=== PATIENT | female | born 1980 | race Hispanic/Latino ===

== ENCOUNTER 2018-06-03 10:49 | Emergency (ER) | payer SELFPAY ==
[2018-06-03] MEDS ORDERED: PREDNISONE 20 MG TABLET ONE (11:15)
[2018-06-03] MEDS ORDERED: ACETAMINOPHEN 325 MG TAB ONE (11:16)
[2018-06-03] MEDS ORDERED: IPRATROPIUM/ALBUTEROL SULFATE 3 ML SOLUTION IH ONE (11:18)
[2018-06-03 11:37] LABS: RAPID GROUP A STREP NEGATIVE (NEGATIVE)
[2018-06-03 11:55] LABS: HCG,QUAL RESULT NEGATIVE (NEGATIVE)
[2018-06-03 11:56] LABS: APPEARANCE,URINE Cloudy (CLEAR); BILIRUBIN,URINE Negative (NEGATIVE); COLOR,URINE Yellow (YELLOW); GLUCOSE, URINE (UA) Negative (NEGATIVE); KETONES,URINE 15 mg/dL (NEGATIVE); LEUKOCYTE ESTERASE ,URINE Moderate (NEGATIVE); NITRATE,URINE Positive (NEGATIVE); OCCULT BLOOD,URINE Trace (NEGATIVE); PH,URINE 5.5 (5.0-8.0); PROTEIN,URINE Trace (NEGATIVE)
[2018-06-03 12:58] LABS: BACTERIA,URINE Many /HPF (None Seen); MUCUS,URINE Few LPF (None Seen); RBC,URINE 0-1 /HPF (0-1); SQUAMOUS EPITHELIAL CELL,UR Rare /HPF (0-2)
== END 2018-06-03 13:01 | disposition home or self-care (01) ==
LOC: EDH 10:49
DX: J45.901 Unspecified asthma with (acute) exacerbation (principal); J20.9 Acute bronchitis, unspecified; Z98.890 Other specified postprocedural states
CPT/HCPCS: 71046; 81001; 81025; 87804; 87880; 94640

== ENCOUNTER 2020-03-15 10:49 | Inpatient (IN) | payer MEDICAID ==
[~2020-03-15] VITALS: Ht 160 cm; Wt 74.8 kg
[2020-03-15] MEDS ORDERED: ONDANSETRON HCL 4 MG/2 ML VIAL ONE (11:28)
[2020-03-15] MEDS ORDERED: KETOROLAC TROMETHAMINE 30MG/ML ONE (11:28)
[2020-03-15 11:51] LABS: BASOPHILS % (AUTO) 0.1 % (0.0-5.0); EOSINOPHILS % (AUTO) 0.2 % (0.0-8.0); HEMATOCRIT 30.8 % (36-48); LYMPHOCYTES % (AUTO) 7.9 % (21.0-51.0); MEAN CORPUSCULAR HEMOGLOBIN 20.6 pg (27.0-33.0); MEAN CORPUSCULAR HGB CONC 30.8 g/dL (32.0-36.0); MEAN CORPUSCULAR VOLUME 66.8 fL (79-99); MONOCYTES % (AUTO) 12.2 % (3.0-13.0); NEUTROPHILS % (AUTO) 78.5 % (40.0-77.0); PLATELET COUNT (AUTO) 166 K/uL (130-400); RED BLOOD CELL COUNT(AUTO) 4.61 MIL/uL (4.00-5.50); RED CELL DISTRIBUTION WIDTH 16.7 % (11.0-15.5); WHITE BLOOD COUNT (AUTO) 20.4 K/uL (4.8-10.8)
[2020-03-15 12:12] LABS: ALBUMIN 2.7 g/dL (3.5-5.0); BILIRUBIN,DIRECT 0.4 mg/dL (0.0-0.3); BILIRUBIN,TOTAL 1.3 mg/dL (0.2-1.0); CREATININE 0.9 mg/dL (0.5-1.5); TOTAL PROTEIN, SERUM 8.5 g/dL (6.0-8.3)
[2020-03-15 12:26] LABS: POTASSIUM 2.8 mmol/L (3.5-5.1)
[2020-03-15] MEDS ORDERED: MAGNESIUM OXIDE 400 MG TABLET PO ONE (12:55)
[2020-03-15] MEDS ORDERED: POTASSIUM BICARB/CIT AC 25 MEQ TABLET.EFF ONE (12:56)
[2020-03-15 13:09] LABS: APPEARANCE,URINE Clear (CLEAR); BILIRUBIN,URINE Negative (NEGATIVE); COLOR,URINE Yellow (YELLOW); GLUCOSE, URINE (UA) Negative (NEGATIVE); KETONES,URINE Negative (NEGATIVE); LEUKOCYTE ESTERASE ,URINE Large (NEGATIVE); NITRATE,URINE Negative (NEGATIVE); OCCULT BLOOD,URINE Trace (NEGATIVE); PH,URINE 6.5 (5.0-8.0); PROTEIN,URINE Trace mg/dL (NEGATIVE)
[2020-03-15 13:11] LABS: HCG,QUAL RESULT NEGATIVE (NEGATIVE)
[2020-03-15 13:18] LABS: AMPHET/METH SCREEN,URINE NEGATIVE (NEGATIVE); BARBITURATE SCREEN, URINE NEGATIVE (NEGATIVE); BENZODIAZEPINES SCREEN,URINE NEGATIVE (NEGATIVE); CANNABINOID SCREEN,URINE NEGATIVE (NEGATIVE); COCAINE SCREEN,URINE NEGATIVE (NEGATIVE); OPIATE SCREEN,URINE NEGATIVE (NEGATIVE); PHENCYCLIDINE SCREEN,URINE NEGATIVE (NEGATIVE)
[2020-03-15 13:20] LABS: RBC,URINE 0-1 /HPF (0-1)
[2020-03-15 13:21] LABS: BACTERIA,URINE Few /HPF (None Seen); MUCUS,URINE Few LPF (None Seen); TRANSITIONAL EPI CELLS,URINE Moderate /HPF (None Seen); TRICHOMONAS,URINE Moderate /LPF (None Seen)
[2020-03-15] MEDS ORDERED: ACETAMINOPHEN EXTRA STRENGTH 500 MG TABLET ONE (13:43)
[2020-03-15] MEDS ORDERED: ZOSYN 3.375GM+NS 50ML 50 ML IV ONE (14:03)
[2020-03-15] MEDS ORDERED: HYDRALAZINE HCL 20 MG/ML VIAL IV PRN (15:45)
[2020-03-15] MEDS ORDERED: ACETAMINOPHEN 325 MG TAB PO PRN ×2 (15:45)
[2020-03-15] MEDS ORDERED: POTASSIUM CHLORIDE 10MEQ/100ML 100 ML IV PRN (15:45)
[2020-03-15] MEDS ORDERED: ONDANSETRON HCL 4 MG/2 ML VIAL IV PRN (15:45)
[2020-03-15] MEDS ORDERED: POTASSIUM CHLORIDE 20 MEQ ERTAB PO PRN (15:45)
[2020-03-15] MEDS: SODIUM CHLORIDE 0.9% 1000ML 1,000 ML IV SCH (15:45)
[2020-03-15] MEDS ORDERED: LIDOCAINE HCL-MPF 1% 2ML VIAL IV PRN (15:45)
[2020-03-15] MEDS ORDERED: METRONIDAZOLE 500MG/100ML BAG 100 ML ONE (16:52)
[2020-03-15] MEDS ORDERED: FAMOTIDINE/PF 20 MG/2 ML VIAL IV ONE (20:28)
[2020-03-15] MEDS ORDERED: ZOSYN 3.375GM+NS 50ML 50 ML IV SCH (23:30)
[2020-03-15] MEDS ORDERED: PHARMACY COMMUNICATION MISC SCH (23:45)
[2020-03-16] VITALS (19 sets, daily range): BP systolic 93–121; BP diastolic 52–88
[2020-03-16] MEDS ORDERED: ZOSYN 3.375GM+NS 50ML 50 ML IV ONE ×2 (00:03→08:43)
[2020-03-16] MEDS ORDERED: METRONIDAZOLE 500MG/100ML BAG 100 ML ONE (01:21)
[2020-03-16] MEDS: SODIUM CHLORIDE 0.9% 1000ML 1,000 ML IV SCH ×3 (01:45→21:45)
[2020-03-16] MEDS ORDERED: MORPHINE SULFATE 2 MG/ML 1ML SYG ONE ×2 (01:46→08:44)
[2020-03-16 03:54] LABS: HEMATOCRIT 24.6 % (36-48); MEAN CORPUSCULAR HEMOGLOBIN 21.2 pg (27.0-33.0); MEAN CORPUSCULAR HGB CONC 31.3 g/dL (32.0-36.0); MEAN CORPUSCULAR VOLUME 67.6 fL (79-99); PLATELET COUNT (AUTO) 140 K/uL (130-400); RED BLOOD CELL COUNT(AUTO) 3.64 MIL/uL (4.00-5.50); RED CELL DISTRIBUTION WIDTH 16.4 % (11.0-15.5); WHITE BLOOD COUNT (AUTO) 14.5 K/uL (4.8-10.8)
[2020-03-16 04:08] LABS: CREATININE 0.7 mg/dL (0.5-1.5); POTASSIUM 3.2 mmol/L (3.5-5.1)
[2020-03-16] MEDS ORDERED: ONDANSETRON HCL 4 MG/2 ML VIAL ONE ×2 (08:43→15:14)
[2020-03-16] MEDS ORDERED: FAMOTIDINE/PF 20 MG/2 ML VIAL IV ONE (08:44)
[2020-03-16] MEDS: FAMOTIDINE/PF 20 MG/2 ML VIAL IV SCH ×3 (09:00→21:00)
[2020-03-16] MEDS ORDERED: CEFAZOLIN SODIUM 1 GM VIAL ONE (14:18)
[2020-03-16] MEDS ORDERED: BUPIVACAINE/PF 0.5% 30ML VIAL ONE (14:42)
[2020-03-16] MEDS ORDERED: LIDOCAINE PF 2% 5ML ABBOJECT ONE (15:12)
[2020-03-16] MEDS ORDERED: SUCCINYLCHOLINE CHLORIDE 20 MG/ML 10 ML VIAL ONE (15:12)
[2020-03-16] MEDS ORDERED: PROPOFOL 10 MG/ML 20ML VIAL IV ONE (15:12)
[2020-03-16] MEDS ORDERED: DEXAMETHASONE SOD PHOSPHATE 10MG/ML 1ML VIAL ONE (15:13)
[2020-03-16] MEDS ORDERED: ROCURONIUM 10MG/1ML SYR 10 MG/ML ML ONE (15:14)
[2020-03-16] MEDS ORDERED: GLYCOPYRROLATE 1 MG/5 ML SYRINGE ONE (15:14)
[2020-03-16] MEDS ORDERED: NEOSTIGMINE 5MG/5ML SYR IV ONE (15:14)
[2020-03-16] MEDS ORDERED: MIDAZOLAM HCL 1 MG/ML 2ML VIAL ONE (15:14)
[2020-03-16] MEDS ORDERED: FENTANYL CITRATE PF 50 MCG/1 ML 2ML VIAL ONE ×2 (15:15→16:02)
--- NOTE | 2020-03-16 17:06 | NUR ---
ATTEMPTED IA. NO ANSWER. CM TO FOLLOW UP IN AM
[2020-03-16] MEDS ORDERED: MEPERIDINE-PF 25 MG/ML SYG ONE ×2 (17:40→17:50)
--- NOTE | 2020-03-16 18:30 | NUR ---
PT / POSTOP / PER SERVICES OF DR LIVE AND DR. DAVIDSON. PT HAD A LAP CHOLECYSTETOMY. ASSESS ABD . PT HAS 5 SM O-SITE DRSG. WITH 2X2 . TO HER UPPER , MID AND LOWER ABD . ACTIVE BOWEL SOUND TENDER TO TOUCH . BUT SOFT. LAST BM PER PT INFORMATION . 03-15-2020 HOB UP . POSTOP V/S STARTED .WITH FALL RISK AND CALL LIGHT IN REACH.. AND BED LEVEL DOWN . Addendum: 03/16/20 at 1934 by SEE YOUNG RN RN NOTED CORRECTION . PT HAS 4 SM 0-SITE DRSG TO HER UPPER MID ABD ,AND RT SIDE OF ABD. DRY AND CLEAN .
--- NOTE | 2020-03-16 18:40 | NUR ---
SET UP IVF OF .9NS AT 100 CC HR . IV SITE RAC , 20 G. NOTED NO REDNESS TO SITE, , NO PAIN VOICED .
[2020-03-16] MEDS: POTASSIUM CHLORIDE 10% ELIXIR 20 MEQ/15 ML UDCUP PO PRN (20:28)
[2020-03-16] MEDS: ZOSYN 3.375GM+NS 50ML 50 ML IV SCH (20:28)
[2020-03-16] MEDS: MORPHINE SULFATE 2 MG/ML 1ML SYG IV PRN (21:28)
[2020-03-17] VITALS: BP 106/69
[2020-03-17] MEDS: METRONIDAZOLE 500MG/100ML BAG 100 ML IV SCH ×4 (01:27→22:02)
[2020-03-17] MEDS: MORPHINE SULFATE 2 MG/ML 1ML SYG IV PRN ×3 (01:33→22:02)
[2020-03-17] MEDS: POTASSIUM CHLORIDE 10% ELIXIR 20 MEQ/15 ML UDCUP PO PRN (01:34)
[2020-03-17 04:00] VITALS: BP 118/73
[2020-03-17 04:16] LABS: BASOPHILS % (AUTO) 0.1 % (0.0-5.0); HEMATOCRIT 26.7 % (36-48); LYMPHOCYTES % (AUTO) 5.5 % (21.0-51.0); MEAN CORPUSCULAR HEMOGLOBIN 20.7 pg (27.0-33.0); MEAN CORPUSCULAR VOLUME 69.2 fL (79-99); MONOCYTES % (AUTO) 4.7 % (3.0-13.0); PLATELET COUNT (AUTO) 167 K/uL (130-400); RED BLOOD CELL COUNT(AUTO) 3.86 MIL/uL (4.00-5.50); RED CELL DISTRIBUTION WIDTH 16.7 % (11.0-15.5); WHITE BLOOD COUNT (AUTO) 16.3 K/uL (4.8-10.8)
[2020-03-17 04:37] LABS: BILIRUBIN,TOTAL 0.5 mg/dL (0.2-1.0); CREATININE 0.7 mg/dL (0.5-1.5); POTASSIUM 3.9 mmol/L (3.5-5.1); TOTAL PROTEIN, SERUM 7.4 g/dL (6.0-8.3)
[2020-03-17] MEDS: ZOSYN 3.375GM+NS 50ML 50 ML IV SCH ×3 (05:43→20:00)
[2020-03-17] MEDS: SODIUM CHLORIDE 0.9% 1000ML 1,000 ML IV SCH ×2 (05:44→17:45)
[2020-03-17] MEDS: FAMOTIDINE/PF 20 MG/2 ML VIAL IV SCH ×2 (07:37→20:00)
--- NOTE | 2020-03-17 08:00 | NUR ---
up ambulating . in the hallway. tolerate well .
[2020-03-17 08:15] VITALS: BP 110/75
--- NOTE | 2020-03-17 08:45 | NUR ---
ATTEMPTED IA. NO ANSWER. CM TO FOLLOW UP
[2020-03-17 11:54] VITALS: BP 115/90
--- NOTE | 2020-03-17 12:56 | NUR ---
DCP IA done by Dion Vasquez RN. As per Dion spoke to pt's daughter Ghislaine De La Vega . Pt is indepenent prior to admission, lives at home with 3 daughters. Denies any equipments/services. Feels safe to go back [place], still drives, daughters able to assist with transporatation and needs as necessary. Uses [facility] for meds. DC plan to home once stable. CM to cont to follow up. Addendum: 03/17/20 at 1308 by LUIS ARMANDO MUNROE LVN CM Amended: Links added.
--- NOTE | 2020-03-17 15:30 | NUR ---
up ambulating . passing gas . tolerate well . sm abd drsg check ,dry and clean .
[2020-03-17 16:48] VITALS: BP 123/80
--- NOTE | 2020-03-17 17:50 | NUR ---
pt will call daughter , regarding her care. pt stated that she does not have any family here , jose de jesus diaz , single mom and she takes care of herself and daughter ,
[2020-03-17 19:00] VITALS: BP 113/82
[2020-03-17] MEDS: MORPHINE SULFATE 4 MG/1ML SYG IV PRN (20:00)
[2020-03-18] VITALS: BP 103/56
[2020-03-18] MEDS: MORPHINE SULFATE 4 MG/1ML SYG IV PRN ×3 (01:10→14:11)
[2020-03-18] MEDS: MORPHINE SULFATE 2 MG/ML 1ML SYG IV PRN (03:23)
[2020-03-18] MEDS: ZOSYN 3.375GM+NS 50ML 50 ML IV SCH ×2 (03:23→12:25)
[2020-03-18] MEDS: SODIUM CHLORIDE 0.9% 1000ML 1,000 ML IV SCH ×2 (03:44→12:25)
[2020-03-18 04:00] VITALS: BP 108/79
[2020-03-18 06:51] LABS: HEMATOCRIT 24.6 % (36-48); MEAN CORPUSCULAR HEMOGLOBIN 20.5 pg (27.0-33.0); MEAN CORPUSCULAR HGB CONC 29.3 g/dL (32.0-36.0); MEAN CORPUSCULAR VOLUME 70.1 fL (79-99); RED BLOOD CELL COUNT(AUTO) 3.51 MIL/uL (4.00-5.50); RED CELL DISTRIBUTION WIDTH 17.2 % (11.0-15.5); WHITE BLOOD COUNT (AUTO) 13.5 K/uL (4.8-10.8)
[2020-03-18 07:07] LABS: ALBUMIN 1.8 g/dL (3.5-5.0); BILIRUBIN,TOTAL 0.3 mg/dL (0.2-1.0); CREATININE 0.7 mg/dL (0.5-1.5); POTASSIUM 3.4 mmol/L (3.5-5.1); TOTAL PROTEIN, SERUM 6.7 g/dL (6.0-8.3)
--- NOTE | 2020-03-18 08:10 | NUR ---
PAIN C/O pain rates 8 right upper quad medicated with morphine 4 mg ivp K-3.4 replaced K 20 MEQ PO
[2020-03-18 08:19] VITALS: BP 93/64
[2020-03-18] MEDS: FAMOTIDINE/PF 20 MG/2 ML VIAL IV SCH (08:19)
[2020-03-18] MEDS: METRONIDAZOLE 500MG/100ML BAG 100 ML IV SCH (08:19)
[2020-03-18 09:04] LABS: RETICULOCYTE % (AUTO) 1.44 % (0.42-2.23)
[2020-03-18 11:48] VITALS: BP 134/81
[2020-03-18] MEDS ORDERED: IRON SUCROSE COMPLEX 500 MG in SODIUM CHLORIDE 0.9% 250 ML IV SCH (11:59)
[2020-03-18] MEDS ORDERED: EPOETIN ALFA 10,000 UNIT/ML VIAL SQ SCH (12:00)
[2020-03-18 16:43] VITALS: BP 112/68
== END 2020-03-18 18:45 | disposition home or self-care (01) | DRG 710 ==
LOC: EDH 10:49 → INTOOBSV 10:50 → EDHIP 10:50 → OBSVTOIN 10:50 → 3AH 03-16 17:27
PROVIDERS: ADMIT Family Medicine; ATTEND Family Medicine
PROC: 0FT44ZZ Resection of Gallbladder, Percutaneous Endoscopic Approach (ICD-10-PCS; principal; 2020-03-16 15:25)
DX: A41.51 Sepsis due to Escherichia coli [E. coli] (principal); K44.9 Diaphragmatic hernia without obstruction or gangrene; E87.6 Hypokalemia; K82.8 Other specified diseases of gallbladder; K82.A1 Gangrene of gallbladder in cholecystitis; D62 Acute posthemorrhagic anemia; K66.0 Peritoneal adhesions (postprocedural) (postinfection)
CPT/HCPCS: 36415; 74176; 74181; 76705; 80048; 80053; 80076; 80305; 81001; 81025; 82550; 83605; 83690; 84145; 84443; 85025; 85027; 85045; 87040; 87077; 87088; 87186; G0378; J0330; J0690; J0885; J1100; J1756; J1885; J2001; J2175; J2250; J2270; J2405; J2543; J2704; J2710; J3010; J3490; J7030; J7050; J7120

== ENCOUNTER 2022-12-26 06:28 | Emergency (ER) | payer MEDICAID ==
[~2022-12-26] VITALS: Ht 160 cm; Wt 83.9 kg
[2022-12-26 06:29] VITALS: BP 141/93
[2022-12-26 07:11] LABS: APPEARANCE,URINE CLOUDY (CLEAR); BILIRUBIN,URINE NEGATIVE (NEGATIVE); COLOR,URINE LIGHT-YELLOW (YELLOW); GLUCOSE, URINE (UA) NEGATIVE (NEGATIVE); KETONES,URINE NEGATIVE (NEGATIVE); LEUKOCYTE ESTERASE ,URINE 75 Leu/uL (NEGATIVE); NITRATE,URINE NEGATIVE (NEGATIVE); OCCULT BLOOD,URINE NEGATIVE (NEGATIVE); PH,URINE 6.5 (5.0-8.0); PROTEIN,URINE NEGATIVE (NEGATIVE); UROBILINOGEN,URINE 0.2 mg/dL (0.2-1.0)
[2022-12-26 07:16] LABS: CREATININE 0.6 mg/dL (0.5-1.5); POTASSIUM 3.8 mmol/L (3.5-5.1)
[2022-12-26 07:21] LABS: ALBUMIN 3.1 g/dL (3.5-5.0); TOTAL PROTEIN, SERUM 7.9 g/dL (6.0-8.3)
[2022-12-26 07:34] LABS: MUCUS,URINE RARE LPF (None Seen); SQUAMOUS EPITHELIAL CELL,UR FEW /HPF (0-2)
[2022-12-26 08:00] LABS: BASOPHILS % (AUTO) 0.5 % (0.0-5.0); EOSINOPHILS % (AUTO) 30.8 % (0.0-8.0); HEMATOCRIT 30.2 % (36-48); LYMPHOCYTES % (AUTO) 19.9 % (21.0-51.0); MEAN CORPUSCULAR HEMOGLOBIN 23.2 pg (27.0-33.0); MEAN CORPUSCULAR HGB CONC 30.5 g/dL (32.0-36.0); MEAN CORPUSCULAR VOLUME 76.3 fL (79-99); MONOCYTES % (AUTO) 5.7 % (3.0-13.0); NEUTROPHILS % (AUTO) 42.8 % (40.0-77.0); PLATELET COUNT (AUTO) 48 K/uL (130-400); RED BLOOD CELL COUNT(AUTO) 3.96 MIL/uL (4.00-5.50); RED CELL DISTRIBUTION WIDTH 17.2 % (11.0-15.5); WHITE BLOOD COUNT (AUTO) 14.5 K/uL (4.8-10.8)
[2022-12-26 08:49] LABS: BASOPHILS % (MANUAL) 2 % (0-2); EOSINOPHILS % (MANUAL) 30 % (1-6); LYMPHOCYTES % (MANUAL) 23 % (22-44); MAN.DIFF COMMENT-IMPRESSION MANUAL DIFFERENTIAL; MONOCYTES % (MANUAL) 2 % (2-9); PLATELET MORPHOLOGY COMMENT MARKED DECREASE; SEGMENTED NEUTROPHILS % 43 % (40-70)
[2022-12-26] MEDS ORDERED: CEFTRIAXONE 1G VIAL IVPB ONE (11:30)
[2022-12-26] MEDS ORDERED: CEFTRIAXONE 2GM VIAL IVPB ONE (12:30)
== END 2022-12-26 13:03 | disposition left against medical advice (07) ==
LOC: EDH 06:28
DX: N39.0 Urinary tract infection, site not specified (principal); N93.9 Abnormal uterine and vaginal bleeding, unspecified; D69.6 Thrombocytopenia, unspecified; Z90.49 Acquired absence of other specified parts of digestive tract
CPT/HCPCS: 99285; 86870; 96365; 76856; 80053; 84703; 85025; 86850; 86900; 86901; 86156; 87077; 87088; 87186; 83605; 81001; 36415; J0696

== ENCOUNTER 2024-11-27 13:46 | Emergency (ER) | payer BC, MEDICAID ==
[~2024-11-27] VITALS: Ht 160 cm; Wt 79.4 kg
--- NOTE | 2024-11-27 14:15 | ERN ---
ED Note History of Present Illness Stated Complaint: OTHER Chief Complaint: Vaginal Problems/Bleeding Time Seen by MD: 13:47 Dictation: PATIENT IS A 44-YEAR-OLD FEMALE COMING IN TODAY WITH COMPLAINTS OF VAGINAL BLEEDING FOR THE LAST 2-3 WEEKS. SHE IS ALSO HAVING MILD CRAMPING. SHE STATES SHE HAS HAD A BILATERAL TUBAL LIGATION AND CAN NOT HAVE CHILDREN. SHE STATES SHE HAS A HISTORY OF KNOWN UTERINE FIBROIDS AND WAS SEE[facility] , [facility] HOWEVER HE IS NO LONGER THERE. SHE GOES TO [facility] HOWEVER HAS NOT DISCUSSED THE CASE WITH THEM OTHER THAN THEY SAID THEY WOULD TRY TO HELP HER FIND AN OB WHICH THEY HAVE NOT DONE YET. Allergies: Coded Allergies: No Known Drug Allergies (Verified Allergy, Unknown, 03/15/20) Home Meds No Active Prescriptions or Reported Meds Past Medical History Past Medical History: Anemia, Other (UTERINE FIBROIDS) Additional Past Medical Hx: LUPUS Surgical History: Cholecystectomy, Other, Social History: Negative, Lives with family History: Not Applicable LMP: Nov 27, 2024 RN Note Reviewed/Agreed w/PFSH: Yes Review of System Dictation CONSTITUTIONAL: NEGATIVE EXCEPT FOR HPI HEAD/FACE: NEGATIVE EXCEPT FOR HPI EENT: NEGATIVE EXCEPT FOR HPI RESPIRATORY: NEGATIVE EXCEPT FOR HPI GASTROINTESTINAL/ABDOMINAL: NEGATIVE EXCEPT FOR HPI GENITOURINARY: NEGATIVE EXCEPT FOR HPI VAGINAL BLEEDING MUSCULOSKELETAL: NEGATIVE EXCEPT FOR HPI INTEGUMENTARY: NEGATIVE EXCEPT FOR HPI NEUROLOGICAL/PSYCH: NEGATIVE EXCEPT FOR HPI HEMATOLOGIC/LYMPHATIC: NEGATIVE EXCEPT FOR HPI ALL SYSTEMS NEGATIVE, EXCEPT NOTED ABOVE. 13 POINT REVIEW OF SYSTEMS ASSESSED AND ALL NEGATIVE EXCEPT FOR ABOVE. Initial Vital Sign VS Vital Signs Date Time Temp Pulse Resp B/P (MAP) Pulse Ox O2 Delivery O2 Flow Rate FiO2 11/27/24 13:53 98.8 105 18 127/76 99 Physical Exam Dictation VITAL SIGNS REVIEWED GENERAL APPEARANCE: ALERT, ORIENTED X 3, N MILD CASTRO DISTRESS, WELL DEVELOPED, NOURISHED. OBESE HEAD AND FACE: NON-TRAUMATIC. EYES: PERRL, PINK CONJUNCTIVAS, EYELID NO TRAUMA, ANTERIOR CHAMBER WITH ARCUS SENILIS. EARS: PINNAS INTACT AND NO SIGNS OF TRAUMA OR ERYTHEMA EAR CANALS CLEAR AND NO DISCHARGE TM NO ERYTHEMA NOSE: NO DISCHARGE, NO BLEEDING. OROPHARYNX: MOUTH NORMAL, TONGUE PINK, PHARYNX CLEAR,NO ERYTHEMA, TONSILS NO EXUDATES, NO ABSCESSES NOTED, MUCOUS MEMBRANE MOIST NECK: SUPPLE, NON-TENDER, NO THYROMEGALY, NO MASSES, NO JVD, NO BRUITS BREAST:DEFERRED CHEST:NO TENDERNESS, NO CREPITUS, NO PARADOXICAL MOVEMENT, NO RETRACTIONS LUNGS:CLEAR, WELL-VENTILATED, SYMMETRIC, NO RALES, NO WHEEZING, NO RHONCHI, NO STRIDOR, GOOD BREATH SOUNDS BILATERALLY HEART: REGULAR RATE, REGULAR RHYTHM, NO MURMUR, NO GALLOPS VASCULAR: NO PERIPHERAL EDEMA, ABDOMEN: SOFT, POSITIVE BOWEL SOUNDS, NONDISTENDED, NO GUARDING, NONTENDER, NO REBOUND, NO MASSES NO HEPATOMEGALY, NO SPLENOMEGALY, NO OLGUIN'S SIGN, NO HERNIAS. RECTAL: DEFERRED GENITAL: DEFERRED NEUROLOGICAL: NORMAL SPEECH, MOTOR FUNCTION INTACT, SENSORY FUNCTION INTACT MUSCULOSKELETAL: NECK NONTENDER, FULL RANGE OF MOTION, BACK NONTENDER, FULL RANGE OF MOTION, EXTREMITIES: NONTENDER, FULL RANGE OF MOTION SKIN: COLOR PINK, DRY, NO TURGOR, NO RASH, NO LACERATIONS, NO ABRASIONS, NO CONTUSIONS. LYMPHATIC: DEFERRED Results (Laboratory/Radiology) Laboratory/Radiology Laboratory Tests Test 11/27/24 14:15 11/27/24 14:22 Urine Color YELLOW (YELLOW) Urine Appearance CLEAR (CLEAR) Urine pH 5.5 (5.0-8.0) Urine Specific [place] 1.027 (1.001-1.031) Urine Protein 10 mg/dL (NEGATIVE) H Urine Glucose (UA) NEGATIVE mg/dL (NEGATIVE) Urine Ketones NEGATIVE mg/dL (NEGATIVE) Urine Occult Blood LARGE (NEGATIVE) H Urine Nitrate NEGATIVE (NEGATIVE) Urine Bilirubin NEGATIVE mg/dL (NEGATIVE) Urine Urobilinogen 2.0 mg/dL (0.2-1.0) H Urine Leukocyte Esterase NEGATIVE Martha/uL Urine RBC 51-100 /HPF (0-1) H Urine WBC 2-5 /HPF (0-1) H Urine Squamous Epithelial Cells RARE /HPF (0-2) Urine Bacteria None /HPF (None Seen) White Blood Count 10.6 K/uL (4.8-10.8) Red Blood Count 4.55 MIL/uL (4.00-5.50) Hemoglobin 11.6 g/dL (12.0-16.0) L Hematocrit 36.6 % (36-48) Mean Corpuscular Volume 80.4 fL (79-99) Mean Corpuscular Hemoglobin 25.5 pg (27.0-33.0) L Mean Corpuscular Hemoglobin Concent 31.7 g/dL (32.0-36.0) L Red Cell Distribution Width 25.1 % (11.0-15.5) H Platelet Count 58 K/uL (130-400) L Mean Platelet Volume fL (7.5-10.5) Immature Granulocyte % (Auto) 0.3 % (0-1) Neutrophils (%) (Auto) 48.2 % (40.0-77.0) Lymphocytes (%) (Auto) 21.5 % (21.0-51.0) Monocytes (%) (Auto) 6.0 % (3.0-13.0) Eosinophils (%) (Auto) 23.4 % (0.0-8.0) H Basophils (%) (Auto) 0.6 % (0.0-5.0) Neutrophils # (Auto) 5.1 K/uL (1.8-7.7) Lymphocytes # (Auto) 2.3 K/uL (1.0-4.8) Monocytes # (Auto) 0.6 K/uL (0.1-1.0) Eosinophils # (Auto) 2.49 K/uL (0.00-0.70) H Basophils # (Auto) 0.06 K/uL (0.00-0.20) Absolute Immature Granulocyte (auto 0.03 K/uL (0-1) Nucleated Red Blood Cells 0.0 % (0.0-0.19) Sodium Level 140 mmol/L (136-145) Potassium Level 3.7 mmol/L (3.5-5.1) Chloride Level 108 mmol/L (101-111) Carbon Dioxide Level 24 mmol/L (21-32) Blood Urea Nitrogen 7 mg/dL (7-18) Creatinine 0.6 mg/dL (0.5-1.0) Glomerular Filtration Rate Calc 113 mL/min (>90) Random Glucose 112 mg/dL (70-105) H Total Calcium 8.8 mg/dL (8.5-10.1) Labs Reviewed?: Yes ED Course ED Course Orders Procedure Category Date Status Time Cbc With Differential LAB 11/27/24 In Process 14:13 0.9%Nacl 1000ml (Ns PHA 11/27/24 Complete 1000ml) 14:30 Type And Screen BBK 11/27/24 In Process 14:13 Basic Metabolic Panel LAB 11/27/24 Complete 14:13 Ketorolac PHA 11/27/24 Complete Tromethamine 30mg/Ml 14:30 Urinalysis Profile LAB 11/27/24 Complete 14:23 Current Medications Medications (Trade) Dose Ordered Sig/Solitario Route PRN Reason Start Time Stop Time Status Last Admin Dose Admin Ketorolac Tromethamine (toRADol) 30 mg ONCE ONCE IVP 11/27/24 14:30 11/27/24 14:31 DC 11/27/24 14:57 Sodium Chloride 1,000 ml @ 0 mls/hr ONCE ONCE IV 11/27/24 14:30 11/27/24 14:31 DC 11/27/24 14:56 Vital Signs Date Time Temp Pulse Resp B/P (MAP) Pulse Ox O2 Delivery O2 Flow Rate FiO2 11/27/24 13:53 98.8 105 18 127/76 99 1500/PATIENT DISCHARGED HOME WITH DIAGNOSIS OF DYSFUNCTIONAL UTERINE BLEEDING AND MILD ANEMIA. SHE WAS TOLD TO FOLLOW UP WITH HER PRIMARY CARE DOCTOR IN 1-2 DAYS AT [facility] FOR REFERRAL TO [facility]. Medical Decision Making MDM MEDICAL DISCHARGE MAKING BASED ON BASIC LABS. NO ULTRASOUND WAS PERFORMED SINCE PATIENT HAS BILATERAL TUBAL LIGATION AND A HISTORY OF UTERINE FIBROIDS. HEMOGLOBIN HEMATOCRIT ARE STABLE PATIENT DISCHARGED WITH PAIN MANAGEMENT TOLD TO FOLLOW UP WITH HER DOCTOR FOR [facility] RE[facility]ERR[facility]. DX & DISP Disposition: Discharge Departure Impression: Primary Impression: Dysfunctional uterine bleeding Additional Impressions: Mild anemia, Microscopic hematuria Condition: Stable Scripts Ibuprofen (Ibuprofen 800 mg Tab) 800 Mg Tab 800 MG PO Q8H PRN for fever or pain, #30 TAB 0 Refills Prov: DIANNE IQBAL [employer]ER WINDER 11/27/24 Additional Instructions: FOLLOW-UP WITH PRIMARY CARE PROVIDER IN 1 TO 2 DAYS. TAKE MEDICATIONS DIRECTED HERE IN THE EMERGENCY ROOM. OKAY TO CONTINUE HOME MEDICATIONS UNLESS OTHERWISE DISCUSSED DURING YOUR VISIT IN THE EMERGENCY ROOM TODAY. RETURN TO YOUR NEAREST EMERGENCY ROOM IF SYMPTOMS WORSEN OR IF THERE IS NO IMPROVEMENT. CALL 911 IF YOU NEED IMMEDIATE ASSISTANCE. TAKE TYLENOL OR MOTRIN [id number] NEEDED AND IF NO CONTRAINDICATIONS ARE PRESENT. INCREASE ORAL HYDRATION. A WOUND CULTURE OR URINE CULTURE WAS ORDERED HERE IN THE EMERGENCY ROOM DEPARTMENT PLEASE FOLLOW-UP WITH PRIMARY CARE PROVIDER AND ADVISE THEM TO GET REPEAT PORTS FROM OUR FACILITY. IF YOU HAD ANY HERI WRAP/SPLINTS THAT WERE APPLIED HERE, PLEASE DO NOT REMOVE THEM UNTIL YOU SEE YOUR PRIMARY CARE OR SPECIALTY. TAKE IBUPROFEN DIRECTED WITH FOOD FOR PAIN. WARM COMPRESSES TO PELVIS THREE TO 4 TIMES A DAY. FOLLOW UP WITH YOUR PRIMARY CARE DOCTOR AT [facility] FOR REFERRAL TO [facility]. Referrals: SELF,REFERRAL (PCP) Time of Disposition: 15:01 I have reviewed the case, and I agree with, Diagnosis and Plan DIANNE IQBAL [employer] RO[employer] WINDER Nov 27, 2024 14:15
[2024-11-27 14:32] LABS: BASOPHILS # (AUTO) 0.06 K/uL (0.00-0.20); BASOPHILS % (AUTO) 0.6 % (0.0-5.0); EOSINOPHILS # (AUTO) 2.49 K/uL (0.00-0.70); EOSINOPHILS % (AUTO) 23.4 % (0.0-8.0); HEMATOCRIT 36.6 % (36-48); IMMATURE GRANULOCYTE ABSOLUTE 0.03 K/uL (0-1); LYMPHOCYTES # (AUTO) 2.3 K/uL (1.0-4.8); LYMPHOCYTES % (AUTO) 21.5 % (21.0-51.0); MEAN CORPUSCULAR HEMOGLOBIN 25.5 pg (27.0-33.0); MEAN CORPUSCULAR HGB CONC 31.7 g/dL (32.0-36.0); MEAN CORPUSCULAR VOLUME 80.4 fL (79-99); MONOCYTES # (AUTO) 0.6 K/uL (0.1-1.0); NEUTROPHILS # (AUTO) 5.1 K/uL (1.8-7.7); NEUTROPHILS % (AUTO) 48.2 % (40.0-77.0); PLATELET COUNT (AUTO) 58 K/uL (130-400); RED BLOOD CELL COUNT(AUTO) 4.55 MIL/uL (4.00-5.50); RED CELL DISTRIBUTION WIDTH 25.1 % (11.0-15.5); WHITE BLOOD COUNT (AUTO) 10.6 K/uL (4.8-10.8)
[2024-11-27 14:35] LABS: CREATININE 0.6 mg/dL (0.5-1.0); POTASSIUM 3.7 mmol/L (3.5-5.1)
[2024-11-27 14:47] LABS: APPEARANCE,URINE CLEAR (CLEAR); BILIRUBIN,URINE NEGATIVE (NEGATIVE); COLOR,URINE YELLOW (YELLOW); GLUCOSE, URINE (UA) NEGATIVE (NEGATIVE); KETONES,URINE NEGATIVE (NEGATIVE); LEUKOCYTE ESTERASE ,URINE NEGATIVE Leu/uL (NEGATIVE); NITRATE,URINE NEGATIVE (NEGATIVE); OCCULT BLOOD,URINE LARGE (NEGATIVE); PH,URINE 5.5 (5.0-8.0); PROTEIN,URINE 10 mg/dL (NEGATIVE)
[2024-11-27 14:48] LABS: ADD UA MICROSCOPIC YES
[2024-11-27 14:50] LABS: MUCUS,URINE RARE LPF (None Seen); RBC,URINE 51-100 /HPF (0-1); SQUAMOUS EPITHELIAL CELL,UR RARE /HPF (0-2)
[2024-11-27] MEDS: 0.9%NACL 1000ML 1,000 ML IV ONE (14:56)
[2024-11-27] MEDS: ketOROlac 30MG VIAL (30MG/ML) IVP ONE (14:57)
[2024-11-27] MEDS ORDERED: IBUP-2077 PO (15:02)
--- NOTE | 2024-11-27 15:04 | NUR ---
PT READY FOR DISCHARGE AFTER IV FLUIDS
[2024-11-27 15:14] VITALS: BP 121/75; PULSE 90; RESP 18; TEMP 98.8; O2SAT 99
[2024-11-27 16:17] LABS: PLATELET MORPHOLOGY COMMENT DECREASED
== END 2024-11-27 16:10 | disposition home or self-care (01) ==
LOC: EDH 13:46
DX: N93.8 Other specified abnormal uterine and vaginal bleeding (principal); D64.9 Anemia, unspecified; R31.29 Other microscopic hematuria; Z90.49 Acquired absence of other specified parts of digestive tract
CPT/HCPCS: 99284; 86870; 96374; 96361; 80048; 85025; 86850; 86900; 86901; 86156; 81001; 36415; J1885; J7030